=== PATIENT | female | born 1940 | race Caucasian/White ===

== ENCOUNTER 2024-02-29 22:07 | Emergency (ER) | payer MEDICARE, BC ==
[2024-02-29 22:46] LABS: HEMATOCRIT 32.6 % (34.2-48.2); HEMOGLOBIN 10.8 g/dL (11.4-15.5); MEAN CORPUSCULAR HEMOGLOBIN 31.2 pg (23.9-33.9); MEAN CORPUSCULAR VOLUME 94.4 fL (76.7-100.5); MEAN PLATELET VOLUME 7.3 fL (7.1-12.4); PLATELET COUNT,PLT 435 x10(3)uL (151-488); RED BLOOD CELL COUNT 3.45 x10(6)uL (3.60-5.20); RED CELL DISTRIBUTION WIDTH 14.4 % (12.3-16.5); WHITE BLOOD CELL COUNT,WBC 16.3 x10-3/uL (3.0-10.3)
[2024-02-29 22:51] LABS: BLOOD UREA NITROGEN,BUN 18 mg/dL (7-18); BUN/CREATININE RATIO 16.4 (9-20); CALCIUM 9.1 mg/dL (8.6-10.2); CARBON DIOXIDE,CO2 29 mmol/L (21-32); CHLORIDE,CL 103 mmol/L (100-110); CREATININE 1.1 mg/dL (0.55-1.02); ESTIMATED GFR 50 mL/min (>60); GLUCOSE RANDOM 86 mg/dL (80-116); POTASSIUM,K 4.2 mmol/L (3.5-5.3); SODIUM,NA 138 mmol/L (135-145)
[2024-02-29 23:02] LABS: LACTIC ACID 0.6 mmol/L (0.4-2.0)
[2024-02-29 23:06] LABS: LYMPHOCYTES PERCENT MAN 18 % (13-37); MONOCYTES PERCENT MAN 6 % (4-12); SEG NEUTROPHILS PERCENT MAN 76 % (46-82)
[2024-02-29 23:08] LABS: BILIRUBIN,URINE NEGATIVE (NEGATIVE); GLUCOSE,URINE NORMAL (NORMAL); KETONES,URINE NEGATIVE (NEGATIVE); LEUKOCYTE ESTERASE,URINE NEGATIVE (NEGATIVE); NITRITE,URINE NEGATIVE (NEGATIVE); OCCULT BLOOD,URINE NEGATIVE (NEGATIVE); PROTEIN,URINE NEGATIVE (NEGATIVE); UROBILINOGEN,URINE NORMAL (NEGATIVE)
[2024-02-29 23:12] LABS: APPEARANCE,URINE CLEAR (CLEAR); BACTERIA,URINE OCCASIONAL (NS); COLOR,URINE YELLOW (YELLOW); RBC,URINE 0-5 (0-5); SQUAMOUS EPITHELIAL CELLS,UR FEW (NS,R,O); WBC,URINE 0-5 (0-5)
[2024-02-29 23:39] LABS: CORONAVIRUS COVID-19 NAA NEGATIVE (NEGATIVE); INFLUENZA A NAA NEGATIVE (NEGATIVE); INFLUENZA B NAA NEGATIVE (NEGATIVE); RESPIRATORY SYNCYTIAL VIR NAA NEGATIVE (NEGATIVE)
== END 2024-03-01 00:08 | disposition home or self-care (01) ==
LOC: FB.ED 22:07
DX: R53.1 Weakness (principal); R50.9 Fever, unspecified; I48.0 Paroxysmal atrial fibrillation; F33.1 Major depressive disorder, recurrent, moderate; M19.90 Unspecified osteoarthritis, unspecified site; Z79.899 Other long term (current) drug therapy; Z79.82 Long term (current) use of aspirin; Z88.2 Allergy status to sulfonamides; Z88.5 Allergy status to narcotic agent; Z88.8 Allergy status to other drugs, medicaments and biological substances
CPT/HCPCS: 0241U; 36415; 71045; 80048; 81001; 83605; 85025; 86140; 99284; 99285

== ENCOUNTER 2024-03-14 19:17 | Inpatient (IN) | payer MEDICARE, BC ==
[2024-03-14] MEDS ORDERED: Sodium Chloride 0.9% 10 ML Syringe FLUSH PRN (19:21)
[2024-03-14 20:09] LABS: BASOPHILS ABSOLUTE AUTO 0.1 x10-3/uL (0.0-0.1); BASOPHILS PERCENT AUTO 0.5 % (0.2-1.5); EOSINOPHILS ABSOLUTE AUTO 0.1 x10-3/uL (0.0-0.8); EOSINOPHILS PERCENT AUTO 0.6 % (0.6-8.1); HEMATOCRIT 34.9 % (34.2-48.2); HEMOGLOBIN 11.1 g/dL (11.4-15.5); LYMPHOCYTES ABSOLUTE AUTO 2.1 x10-3/uL (1.0-4.4); LYMPHOCYTES PERCENT AUTO 10.9 % (18.4-52.1); MEAN CORPUSCULAR HGB CONC 31.8 g/dL (31.9-34.8); MEAN CORPUSCULAR VOLUME 94.2 fL (76.7-100.5); MEAN PLATELET VOLUME 8.3 fL (7.1-12.4); MONOCYTES ABSOLUTE AUTO 1.1 x10-3/uL (0.3-1.0); MONOCYTES PERCENT AUTO 5.9 % (4.4-15.7); NEUTROPHILS ABSOLUTE AUTO 15.8 x10-3/uL (1.5-6.3); NEUTROPHILS PERCENT AUTO 82.1 % (30.8-76.2); PLATELET COUNT,PLT 409 x10(3)uL (151-488); RED BLOOD CELL COUNT 3.71 x10(6)uL (3.60-5.20); RED CELL DISTRIBUTION WIDTH 14.7 % (12.3-16.5); WHITE BLOOD CELL COUNT,WBC 19.2 x10-3/uL (3.0-10.3)
[2024-03-14 20:11] LABS: BLOOD UREA NITROGEN,BUN 19 mg/dL (7-18); BUN/CREATININE RATIO 15.8 (9-20); CARBON DIOXIDE,CO2 25 mmol/L (21-32); CHLORIDE,CL 103 mmol/L (100-110); CREATININE 1.2 mg/dL (0.55-1.02); EST CRCL DRUG DOSING (CG) 29.38 mL/min; ESTIMATED GFR 45 mL/min (>60); GLUCOSE RANDOM 95 mg/dL (80-116); POTASSIUM,K 4.3 mmol/L (3.5-5.3); SODIUM,NA 138 mmol/L (135-145)
[2024-03-14 20:17] LABS: A/G RATIO 0.8; ALANINE AMINOTRANSFERASE,ALT 20 U/L (12-36); ALBUMIN 3.2 g/dL (3.2-4.6); ALKALINE PHOSPHATASE 115 IU/L (56-112); ASPARTATE AMNIOTRANSFERASE,AST 22 IU/L (5-25); BILIRUBIN TOTAL 0.3 mg/dL (0.1-1.3); PROTEIN TOTAL,TP 7.4 g/dL (6.0-8.0); TROPONIN I 8.4 pg/mL (4.0-60.3)
[2024-03-14 20:21] LABS: LACTIC ACID 1.1 mmol/L (0.4-2.0)
[2024-03-14 20:29] LABS: C-REACTIVE PROTEIN 3.14 mg/dL (<0.50)
[2024-03-14 20:44] LABS: BILIRUBIN,URINE NEGATIVE (NEGATIVE); GLUCOSE,URINE NORMAL (NORMAL); KETONES,URINE NEGATIVE (NEGATIVE); LEUKOCYTE ESTERASE,URINE NEGATIVE (NEGATIVE); NITRITE,URINE NEGATIVE (NEGATIVE); OCCULT BLOOD,URINE NEGATIVE (NEGATIVE); PROTEIN,URINE NEGATIVE (NEGATIVE); UROBILINOGEN,URINE NORMAL (NEGATIVE)
[2024-03-14 20:50] LABS: APPEARANCE,URINE CLEAR (CLEAR); BACTERIA,URINE RARE (NS); COLOR,URINE YELLOW (YELLOW); RBC,URINE 0-5 (0-5); SQUAMOUS EPITHELIAL CELLS,UR OCCASIONAL (NS,R,O); WBC,URINE 0-5 (0-5)
[2024-03-14] MEDS: Piperacillin/Tazobactam 4.5 GM in Sodium Chloride 0.9% 100 ML IV ONE (21:43)
[2024-03-14] MEDS: Sodium Chloride 0.9% 1,000 ML IV SCH (21:44)
[2024-03-15 06:34] LABS: HEMATOCRIT 32.8 % (34.2-48.2); HEMOGLOBIN 10.6 g/dL (11.4-15.5); MEAN CORPUSCULAR HEMOGLOBIN 30.7 pg (23.9-33.9); MEAN CORPUSCULAR HGB CONC 32.2 g/dL (31.9-34.8); MEAN CORPUSCULAR VOLUME 95.2 fL (76.7-100.5); PLATELET COUNT,PLT 408 x10(3)uL (151-488); RED BLOOD CELL COUNT 3.45 x10(6)uL (3.60-5.20); RED CELL DISTRIBUTION WIDTH 14.5 % (12.3-16.5); WHITE BLOOD CELL COUNT,WBC 17.2 x10-3/uL (3.0-10.3)
[2024-03-15 06:45] LABS: BLOOD UREA NITROGEN,BUN 15 mg/dL (7-18); BUN/CREATININE RATIO 13.6 (9-20); CALCIUM 8.5 mg/dL (8.6-10.2); CARBON DIOXIDE,CO2 27 mmol/L (21-32); CHLORIDE,CL 105 mmol/L (100-110); CREATININE 1.1 mg/dL (0.55-1.02); EST CRCL DRUG DOSING (CG) 36.28 mL/min; ESTIMATED GFR 50 mL/min (>60); GLUCOSE RANDOM 82 mg/dL (80-116); POTASSIUM,K 3.5 mmol/L (3.5-5.3); SODIUM,NA 140 mmol/L (135-145)
[2024-03-15 06:58] LABS: EOSINOPHILS PERCENT MAN 1 % (0-5); LYMPHOCYTES PERCENT MAN 21 % (13-37); MONOCYTES PERCENT MAN 1 % (4-12); SEG NEUTROPHILS PERCENT MAN 77 % (46-82)
[2024-03-15] MEDS: Loperamide 2 MG Cap PO PRN (10:20)
[2024-03-15] MEDS ORDERED: Loratadine 10 MG Tab PO PRN (10:33)
[2024-03-15] MEDS ORDERED: Calcium Carbonate 500 MG Tab.Chew PO PRN (10:33)
[2024-03-15] MEDS ORDERED: Simethicone 80 MG Tab.Chew PO PRN (10:33)
[2024-03-15] MEDS: buPROPion 150 MG Tab.ER PO SCH (11:42)
[2024-03-15] MEDS: Sertraline 50 MG Tab PO SCH (11:42)
[2024-03-15] MEDS: Apixaban 5 MG Tab PO SCH (11:42)
[2024-03-15] MEDS: atorvaSTATin 20 MG Tab PO SCH (20:29)
[2024-03-15] MEDS: Memantine 10 MG Tab PO SCH (20:29)
[2024-03-15] MEDS: Pregabalin 25 MG Cap PO SCH (20:29)
[2024-03-15] MEDS: Donepezil 10 MG Tab PO SCH (20:29)
[2024-03-15] MEDS: Acetaminophen 500 MG Tab PO SCH (20:30)
[2024-03-15] MEDS: Flecainide 100 MG Tab PO SCH (20:30)
[2024-03-16 06:37] LABS: BASOPHILS ABSOLUTE AUTO 0.1 x10-3/uL (0.0-0.1); BASOPHILS PERCENT AUTO 0.5 % (0.2-1.5); EOSINOPHILS ABSOLUTE AUTO 0.6 x10-3/uL (0.0-0.8); EOSINOPHILS PERCENT AUTO 5.9 % (0.6-8.1); HEMOGLOBIN 9.8 g/dL (11.4-15.5); LYMPHOCYTES ABSOLUTE AUTO 2.6 x10-3/uL (1.0-4.4); LYMPHOCYTES PERCENT AUTO 24.3 % (18.4-52.1); MEAN CORPUSCULAR HEMOGLOBIN 31.1 pg (23.9-33.9); MEAN CORPUSCULAR HGB CONC 32.7 g/dL (31.9-34.8); MONOCYTES ABSOLUTE AUTO 0.9 x10-3/uL (0.3-1.0); MONOCYTES PERCENT AUTO 8.4 % (4.4-15.7); NEUTROPHILS ABSOLUTE AUTO 6.4 x10-3/uL (1.5-6.3); NEUTROPHILS PERCENT AUTO 60.9 % (30.8-76.2); PLATELET COUNT,PLT 357 x10(3)uL (151-488); RED BLOOD CELL COUNT 3.16 x10(6)uL (3.60-5.20); RED CELL DISTRIBUTION WIDTH 14.1 % (12.3-16.5); WHITE BLOOD CELL COUNT,WBC 10.6 x10-3/uL (3.0-10.3)
[2024-03-16 06:47] LABS: A/G RATIO 0.7; ALANINE AMINOTRANSFERASE,ALT 12 U/L (12-36); ALBUMIN 2.3 g/dL (3.2-4.6); ALKALINE PHOSPHATASE 75 IU/L (56-112); ASPARTATE AMNIOTRANSFERASE,AST 13 IU/L (5-25); BILIRUBIN TOTAL 0.3 mg/dL (0.1-1.3); BLOOD UREA NITROGEN,BUN 13 mg/dL (7-18); CALCIUM 8.3 mg/dL (8.6-10.2); CARBON DIOXIDE,CO2 27 mmol/L (21-32); CHLORIDE,CL 112 mmol/L (100-110); ESTIMATED GFR 56 mL/min (>60); GLUCOSE RANDOM 83 mg/dL (80-116); POTASSIUM,K 3.6 mmol/L (3.5-5.3); PROTEIN TOTAL,TP 5.8 g/dL (6.0-8.0); SODIUM,NA 145 mmol/L (135-145)
[2024-03-16] MEDS: Ferrous Sulfate 325 MG Tab PO SCH (09:25)
[2024-03-16] MEDS: Folic Acid 1 MG Tab PO SCH (09:25)
[2024-03-17 06:49] LABS: BASOPHILS ABSOLUTE AUTO 0.1 x10-3/uL (0.0-0.1); BASOPHILS PERCENT AUTO 0.8 % (0.2-1.5); EOSINOPHILS ABSOLUTE AUTO 0.5 x10-3/uL (0.0-0.8); EOSINOPHILS PERCENT AUTO 7.2 % (0.6-8.1); HEMATOCRIT 30.1 % (34.2-48.2); HEMOGLOBIN 9.9 g/dL (11.4-15.5); LYMPHOCYTES ABSOLUTE AUTO 2.6 x10-3/uL (1.0-4.4); LYMPHOCYTES PERCENT AUTO 37.3 % (18.4-52.1); MEAN CORPUSCULAR HEMOGLOBIN 31.1 pg (23.9-33.9); MEAN CORPUSCULAR HGB CONC 32.8 g/dL (31.9-34.8); MEAN CORPUSCULAR VOLUME 94.8 fL (76.7-100.5); MEAN PLATELET VOLUME 6.9 fL (7.1-12.4); MONOCYTES ABSOLUTE AUTO 0.7 x10-3/uL (0.3-1.0); MONOCYTES PERCENT AUTO 9.8 % (4.4-15.7); NEUTROPHILS ABSOLUTE AUTO 3.1 x10-3/uL (1.5-6.3); NEUTROPHILS PERCENT AUTO 44.9 % (30.8-76.2); PLATELET COUNT,PLT 390 x10(3)uL (151-488); RED BLOOD CELL COUNT 3.18 x10(6)uL (3.60-5.20); RED CELL DISTRIBUTION WIDTH 14.1 % (12.3-16.5)
[2024-03-17 06:57] LABS: BLOOD UREA NITROGEN,BUN 14 mg/dL (7-18); CALCIUM 8.8 mg/dL (8.6-10.2); CARBON DIOXIDE,CO2 26 mmol/L (21-32); CHLORIDE,CL 110 mmol/L (100-110); ESTIMATED GFR 56 mL/min (>60); GLUCOSE RANDOM 85 mg/dL (80-116); POTASSIUM,K 4.4 mmol/L (3.5-5.3); SODIUM,NA 143 mmol/L (135-145)
[2024-03-17] MEDS: buPROPion 150 MG Tab.ER PO SCH (09:15)
== END 2024-03-17 11:35 | disposition home or self-care (01) | DRG 392 ==
LOC: FB.ED 19:17 → FB.MS 21:07 → OBSVTOIN 03-15 11:28
PROVIDERS: ADMIT Family Medicine; ATTEND Family Medicine
DX: R53.1 Weakness (principal); R50.9 Fever, unspecified; G30.1 Alzheimer's disease with late onset; F02.B0 Dementia in other diseases classified elsewhere, moderate, without behavioral disturbance, psychotic disturbance, mood disturbance, and anxiety; A08.4 Viral intestinal infection, unspecified; F02.B4 Dementia in other diseases classified elsewhere, moderate, with anxiety; F02.B3 Dementia in other diseases classified elsewhere, moderate, with mood disturbance; F33.1 Major depressive disorder, recurrent, moderate; Z66 Do not resuscitate; K21.9 Gastro-esophageal reflux disease without esophagitis; M19.90 Unspecified osteoarthritis, unspecified site; G30.9 Alzheimer's disease, unspecified; M54.9 Dorsalgia, unspecified; G89.29 Other chronic pain; I48.0 Paroxysmal atrial fibrillation; E86.0 Dehydration; D63.1 Anemia in chronic kidney disease; N18.31 Chronic kidney disease, stage 3a; Z88.5 Allergy status to narcotic agent; Z88.2 Allergy status to sulfonamides; Z88.8 Allergy status to other drugs, medicaments and biological substances; Z79.01 Long term (current) use of anticoagulants; Z79.4 Long term (current) use of insulin; Z79.899 Other long term (current) drug therapy; Z85.038 Personal history of other malignant neoplasm of large intestine; Z87.440 Personal history of urinary (tract) infections
CPT/HCPCS: 36415 ×2; 71045; 80048; 80053; 81001; 83605; 83735; 83880; 84484; 85025 ×2; 86140; 87040 ×2; 93005; 99285; A9270; J2543; J3490; J7030 ×2; U0002; 96365; 97161-GP; 97165-GO; 99223; 99233; 99238; G0378

== ENCOUNTER 2024-04-08 11:59 | Emergency (ER) | payer MEDICARE, BC ==
[2024-04-08 12:35] LABS: BILIRUBIN,URINE NEGATIVE (NEGATIVE); GLUCOSE,URINE NORMAL (NORMAL); KETONES,URINE NEGATIVE (NEGATIVE); LEUKOCYTE ESTERASE,URINE NEGATIVE (NEGATIVE); NITRITE,URINE NEGATIVE (NEGATIVE); OCCULT BLOOD,URINE NEGATIVE (NEGATIVE); PROTEIN,URINE NEGATIVE (NEGATIVE); UROBILINOGEN,URINE NORMAL (NEGATIVE)
[2024-04-08 12:36] LABS: APPEARANCE,URINE CLOUDY (CLEAR); COLOR,URINE YELLOW (YELLOW); RBC,URINE 0-5 (0-5); SQUAMOUS EPITHELIAL CELLS,UR FEW (NS,R,O)
[2024-04-08 12:37] LABS: BACTERIA,URINE MANY (NS)
[2024-04-08] MEDS: Sodium Chloride 0.9% 500 ML IV ONE (12:49)
[2024-04-08 12:54] LABS: BASOPHILS ABSOLUTE AUTO 0.1 x10-3/uL (0.0-0.1); BASOPHILS PERCENT AUTO 1.1 % (0.2-1.5); EOSINOPHILS ABSOLUTE AUTO 0.1 x10-3/uL (0.0-0.8); EOSINOPHILS PERCENT AUTO 1.3 % (0.6-8.1); HEMATOCRIT 34.2 % (34.2-48.2); HEMOGLOBIN 11.3 g/dL (11.4-15.5); LYMPHOCYTES ABSOLUTE AUTO 1.5 x10-3/uL (1.0-4.4); LYMPHOCYTES PERCENT AUTO 20.8 % (18.4-52.1); MEAN CORPUSCULAR HEMOGLOBIN 30.8 pg (23.9-33.9); MEAN CORPUSCULAR VOLUME 93.1 fL (76.7-100.5); MEAN PLATELET VOLUME 7.5 fL (7.1-12.4); MONOCYTES ABSOLUTE AUTO 0.7 x10-3/uL (0.3-1.0); MONOCYTES PERCENT AUTO 8.9 % (4.4-15.7); NEUTROPHILS PERCENT AUTO 67.9 % (30.8-76.2); PLATELET COUNT,PLT 408 x10(3)uL (151-488); RED BLOOD CELL COUNT 3.67 x10(6)uL (3.60-5.20); RED CELL DISTRIBUTION WIDTH 14.1 % (12.3-16.5); WHITE BLOOD CELL COUNT,WBC 7.3 x10-3/uL (3.0-10.3)
[2024-04-08 12:59] LABS: BLOOD UREA NITROGEN,BUN 20 mg/dL (7-18); BUN/CREATININE RATIO 18.2 (9-20); CALCIUM 9.3 mg/dL (8.6-10.2); CARBON DIOXIDE,CO2 29 mmol/L (21-32); CHLORIDE,CL 104 mmol/L (100-110); CREATININE 1.1 mg/dL (0.55-1.02); EST CRCL DRUG DOSING (CG) 37.68 mL/min; ESTIMATED GFR 50 mL/min (>60); GLUCOSE RANDOM 90 mg/dL (80-116); POTASSIUM,K 4.2 mmol/L (3.5-5.3); SODIUM,NA 141 mmol/L (135-145)
[2024-04-08 13:05] LABS: A/G RATIO 0.7; ALANINE AMINOTRANSFERASE,ALT 22 U/L (12-36); ALBUMIN 3.1 g/dL (3.2-4.6); ALKALINE PHOSPHATASE 123 IU/L (56-112); ASPARTATE AMNIOTRANSFERASE,AST 24 IU/L (5-25); BILIRUBIN TOTAL 0.3 mg/dL (0.1-1.3); PROTEIN TOTAL,TP 7.4 g/dL (6.0-8.0)
[2024-04-08] MEDS: Gentamicin 160 MG in Sodium Chloride 0.9% 100 ML IV STA (13:46)
[2024-04-08] MEDS: Vancomycin 125 MG Cap PO STA (13:47)
== END 2024-04-08 14:55 ==
LOC: FB.ED 11:59
DX: S00.83XA Contusion of other part of head, initial encounter (principal); N39.0 Urinary tract infection, site not specified; E86.0 Dehydration; R79.82 Elevated C-reactive protein (CRP); Z79.01 Long term (current) use of anticoagulants; I48.91 Unspecified atrial fibrillation; K21.9 Gastro-esophageal reflux disease without esophagitis; Z79.899 Other long term (current) drug therapy; Z88.1 Allergy status to other antibiotic agents; Z88.6 Allergy status to analgesic agent; Z88.5 Allergy status to narcotic agent; Z88.8 Allergy status to other drugs, medicaments and biological substances; W01.198A Fall on same level from slipping, tripping and stumbling with subsequent striking against other object, initial encounter
CPT/HCPCS: 36415; 70450; 80053; 81001; 85025; 86140; 87086; 87088; 96361; 96365; 99284; A9270; J1580; J3490; J7040

== ENCOUNTER 2024-08-15 17:51 | Inpatient (IN) | payer MEDICARE, BC ==
[2024-08-15 18:34] LABS: HEMATOCRIT 37.1 % (34.2-48.2); HEMOGLOBIN 12.6 g/dL (11.4-15.5); MEAN CORPUSCULAR HEMOGLOBIN 31.5 pg (23.9-33.9); MEAN CORPUSCULAR VOLUME 92.6 fL (76.7-100.5); MEAN PLATELET VOLUME 7.4 fL (7.1-12.4); PLATELET COUNT,PLT 318 x10(3)uL (151-488); RED BLOOD CELL COUNT 4.01 x10(6)uL (3.60-5.20); RED CELL DISTRIBUTION WIDTH 14.8 % (12.3-16.5); WHITE BLOOD CELL COUNT,WBC 10.6 x10-3/uL (3.0-10.3)
[2024-08-15 18:37] LABS: BLOOD UREA NITROGEN,BUN 27 mg/dL (7-18); BUN/CREATININE RATIO 22.5 (9-20); CALCIUM 9.2 mg/dL (8.6-10.2); CARBON DIOXIDE,CO2 26 mmol/L (21-32); CHLORIDE,CL 105 mmol/L (100-110); CREATININE 1.2 mg/dL (0.55-1.02); ESTIMATED GFR 45 mL/min (>60); GLUCOSE RANDOM 109 mg/dL (80-116); POTASSIUM,K 4.4 mmol/L (3.5-5.3); SODIUM,NA 141 mmol/L (135-145)
[2024-08-15] MEDS: Sodium Chloride 0.9% 1,000 ML IV SCH (18:49)
[2024-08-15 19:04] LABS: BAND PERCENT MAN 1 % (0-6); LYMPHOCYTES PERCENT MAN 6 % (13-37); MONOCYTES PERCENT MAN 2 % (4-12); SEG NEUTROPHILS PERCENT MAN 91 % (46-82)
[2024-08-15 19:36] LABS: APPEARANCE,URINE CLEAR (CLEAR); BILIRUBIN,URINE NEGATIVE (NEGATIVE); COLOR,URINE YELLOW (YELLOW); GLUCOSE,URINE NORMAL (NORMAL); KETONES,URINE NEGATIVE (NEGATIVE); LEUKOCYTE ESTERASE,URINE SMALL (NEGATIVE); NITRITE,URINE POSITIVE (NEGATIVE); OCCULT BLOOD,URINE NEGATIVE (NEGATIVE); PROTEIN,URINE NEGATIVE (NEGATIVE); RBC,URINE 0-5 (0-5); SQUAMOUS EPITHELIAL CELLS,UR OCCASIONAL (NS,R,O); UROBILINOGEN,URINE NORMAL (NEGATIVE)
[2024-08-15 19:37] LABS: BACTERIA,URINE MODERATE (NS)
[2024-08-15] MEDS: cefTRIAXone 2 GM Vial IVPUSH ONE (19:44)
[2024-08-15] MEDS ORDERED: Sennosides/Docusate Sodium 50-8.6 MG Tab PO PRN (20:08)
[2024-08-15] MEDS ORDERED: Ondansetron 4 MG/2 ML SDV IV PRN (20:08)
[2024-08-15] MEDS ORDERED: Acetaminophen 325 MG Tab PO PRN (20:08)
[2024-08-15] MEDS ORDERED: Loperamide 2 MG Cap PO PRN (20:14)
[2024-08-15] MEDS ORDERED: Simethicone 80 MG Tab.Chew PO PRN (20:14)
[2024-08-15] MEDS ORDERED: Loratadine 10 MG Tab PO PRN (20:14)
[2024-08-15] MEDS ORDERED: Calcium Carbonate 500 MG Tab.Chew PO PRN (20:14)
[2024-08-16] MEDS: Apixaban 5 MG Tab PO SCH ×2 (00:04→03:00)
[2024-08-16] MEDS: Flecainide 100 MG Tab PO SCH (00:05)
[2024-08-16] MEDS: atorvaSTATin 20 MG Tab PO SCH (00:05)
[2024-08-16] MEDS: Memantine 10 MG Tab PO SCH (00:05)
[2024-08-16] MEDS: Donepezil 10 MG Tab PO SCH (00:05)
[2024-08-16] MEDS: Pregabalin 25 MG Cap PO SCH (00:05)
[2024-08-16] MEDS: Sodium Chloride 0.9% 1,000 ML IV SCH (00:43)
[2024-08-16 06:52] LABS: BASOPHILS PERCENT AUTO 0.5 % (0.2-1.5); EOSINOPHILS ABSOLUTE AUTO 0.1 x10-3/uL (0.0-0.8); HEMOGLOBIN 10.9 g/dL (11.4-15.5); LYMPHOCYTES ABSOLUTE AUTO 2.1 x10-3/uL (1.0-4.4); LYMPHOCYTES PERCENT AUTO 21.2 % (18.4-52.1); MEAN CORPUSCULAR HEMOGLOBIN 31.6 pg (23.9-33.9); MEAN CORPUSCULAR VOLUME 92.8 fL (76.7-100.5); MEAN PLATELET VOLUME 7.8 fL (7.1-12.4); MONOCYTES ABSOLUTE AUTO 1.1 x10-3/uL (0.3-1.0); MONOCYTES PERCENT AUTO 10.8 % (4.4-15.7); NEUTROPHILS ABSOLUTE AUTO 6.6 x10-3/uL (1.5-6.3); NEUTROPHILS PERCENT AUTO 66.5 % (30.8-76.2); PLATELET COUNT,PLT 285 x10(3)uL (151-488); RED BLOOD CELL COUNT 3.45 x10(6)uL (3.60-5.20); RED CELL DISTRIBUTION WIDTH 14.7 % (12.3-16.5); WHITE BLOOD CELL COUNT,WBC 9.9 x10-3/uL (3.0-10.3)
[2024-08-16 07:11] LABS: A/G RATIO 0.9; ALANINE AMINOTRANSFERASE,ALT 24 U/L (12-36); ALBUMIN 2.9 g/dL (3.2-4.6); ALKALINE PHOSPHATASE 95 IU/L (56-112); ASPARTATE AMNIOTRANSFERASE,AST 20 IU/L (5-25); BILIRUBIN TOTAL 0.4 mg/dL (0.1-1.3); BLOOD UREA NITROGEN,BUN 21 mg/dL (7-18); BUN/CREATININE RATIO 19.1 (9-20); CALCIUM 8.5 mg/dL (8.6-10.2); CARBON DIOXIDE,CO2 27 mmol/L (21-32); CHLORIDE,CL 109 mmol/L (100-110); CREATININE 1.1 mg/dL (0.55-1.02); EST CRCL DRUG DOSING (CG) 36.28 mL/min; ESTIMATED GFR 50 mL/min (>60); GLUCOSE RANDOM 86 mg/dL (80-116); PROTEIN TOTAL,TP 6.1 g/dL (6.0-8.0); SODIUM,NA 143 mmol/L (135-145)
[2024-08-16] MEDS ORDERED: INULIN PO SCH (09:00)
[2024-08-16] MEDS ORDERED: Gentamicin 40 MG/ML 2 ML Vial IM SCH (09:00)
[2024-08-16] MEDS ORDERED: CHROMIUM PICOLINATE PO SCH (09:00)
[2024-08-16] MEDS ORDERED: [UNRECOGNIZED DRUG - OTHER] PO SCH (09:00)
[2024-08-16] MEDS: Folic Acid 1 MG Tab PO SCH (09:02)
[2024-08-16] MEDS: Ferrous Sulfate 325 MG Tab PO SCH (09:02)
[2024-08-16] MEDS: Sertraline 50 MG Tab PO SCH (09:13)
[2024-08-16] MEDS: buPROPion 150 MG Tab.ER PO SCH (09:13)
[2024-08-16] MEDS: Acetaminophen 500 MG Tab PO SCH (11:07)
[2024-08-16] MEDS: cefTRIAXone 1 GM Vial IVPUSH SCH (21:15)
[2024-08-17 06:23] LABS: BASOPHILS ABSOLUTE AUTO 0.1 x10-3/uL (0.0-0.1); BASOPHILS PERCENT AUTO 0.8 % (0.2-1.5); EOSINOPHILS ABSOLUTE AUTO 0.3 x10-3/uL (0.0-0.8); EOSINOPHILS PERCENT AUTO 2.8 % (0.6-8.1); HEMATOCRIT 32.6 % (34.2-48.2); HEMOGLOBIN 11.2 g/dL (11.4-15.5); LYMPHOCYTES ABSOLUTE AUTO 2.1 x10-3/uL (1.0-4.4); LYMPHOCYTES PERCENT AUTO 22.9 % (18.4-52.1); MEAN CORPUSCULAR HEMOGLOBIN 32.1 pg (23.9-33.9); MEAN CORPUSCULAR HGB CONC 34.3 g/dL (31.9-34.8); MEAN CORPUSCULAR VOLUME 93.7 fL (76.7-100.5); MEAN PLATELET VOLUME 7.4 fL (7.1-12.4); MONOCYTES ABSOLUTE AUTO 1.2 x10-3/uL (0.3-1.0); MONOCYTES PERCENT AUTO 12.6 % (4.4-15.7); NEUTROPHILS ABSOLUTE AUTO 5.6 x10-3/uL (1.5-6.3); NEUTROPHILS PERCENT AUTO 60.9 % (30.8-76.2); PLATELET COUNT,PLT 274 x10(3)uL (151-488); RED BLOOD CELL COUNT 3.48 x10(6)uL (3.60-5.20); RED CELL DISTRIBUTION WIDTH 14.4 % (12.3-16.5); WHITE BLOOD CELL COUNT,WBC 9.1 x10-3/uL (3.0-10.3)
[2024-08-17 06:31] LABS: BLOOD UREA NITROGEN,BUN 17 mg/dL (7-18); BUN/CREATININE RATIO 15.5 (9-20); CALCIUM 8.8 mg/dL (8.6-10.2); CARBON DIOXIDE,CO2 25 mmol/L (21-32); CHLORIDE,CL 111 mmol/L (100-110); CREATININE 1.1 mg/dL (0.55-1.02); EST CRCL DRUG DOSING (CG) 36.28 mL/min; ESTIMATED GFR 50 mL/min (>60); GLUCOSE RANDOM 87 mg/dL (80-116); POTASSIUM,K 4.3 mmol/L (3.5-5.3); SODIUM,NA 144 mmol/L (135-145)
[2024-08-18 07:08] LABS: BASOPHILS ABSOLUTE AUTO 0.1 x10-3/uL (0.0-0.1); BASOPHILS PERCENT AUTO 0.8 % (0.2-1.5); EOSINOPHILS ABSOLUTE AUTO 0.3 x10-3/uL (0.0-0.8); EOSINOPHILS PERCENT AUTO 3.8 % (0.6-8.1); HEMATOCRIT 32.6 % (34.2-48.2); HEMOGLOBIN 11.1 g/dL (11.4-15.5); LYMPHOCYTES PERCENT AUTO 21.5 % (18.4-52.1); MEAN CORPUSCULAR HEMOGLOBIN 31.8 pg (23.9-33.9); MEAN CORPUSCULAR HGB CONC 34.2 g/dL (31.9-34.8); MEAN CORPUSCULAR VOLUME 92.9 fL (76.7-100.5); MEAN PLATELET VOLUME 7.8 fL (7.1-12.4); MONOCYTES ABSOLUTE AUTO 1.1 x10-3/uL (0.3-1.0); MONOCYTES PERCENT AUTO 12.4 % (4.4-15.7); NEUTROPHILS ABSOLUTE AUTO 5.6 x10-3/uL (1.5-6.3); NEUTROPHILS PERCENT AUTO 61.5 % (30.8-76.2); PLATELET COUNT,PLT 294 x10(3)uL (151-488); RED BLOOD CELL COUNT 3.51 x10(6)uL (3.60-5.20); RED CELL DISTRIBUTION WIDTH 14.3 % (12.3-16.5); WHITE BLOOD CELL COUNT,WBC 9.2 x10-3/uL (3.0-10.3)
[2024-08-18 07:11] LABS: BLOOD UREA NITROGEN,BUN 13 mg/dL (7-18); CALCIUM 8.9 mg/dL (8.6-10.2); CARBON DIOXIDE,CO2 25 mmol/L (21-32); CHLORIDE,CL 110 mmol/L (100-110); ESTIMATED GFR 56 mL/min (>60); GLUCOSE RANDOM 83 mg/dL (80-116); POTASSIUM,K 4.1 mmol/L (3.5-5.3); SODIUM,NA 144 mmol/L (135-145)
[2024-08-19 07:06] LABS: BLOOD UREA NITROGEN,BUN 16 mg/dL (7-18); CALCIUM 9.1 mg/dL (8.6-10.2); CARBON DIOXIDE,CO2 28 mmol/L (21-32); CHLORIDE,CL 110 mmol/L (100-110); ESTIMATED GFR 56 mL/min (>60); GLUCOSE RANDOM 82 mg/dL (80-116); POTASSIUM,K 4.4 mmol/L (3.5-5.3); SODIUM,NA 145 mmol/L (135-145)
[2024-08-19 07:07] LABS: BASOPHILS ABSOLUTE AUTO 0.1 x10-3/uL (0.0-0.1); BASOPHILS PERCENT AUTO 0.7 % (0.2-1.5); EOSINOPHILS ABSOLUTE AUTO 0.4 x10-3/uL (0.0-0.8); EOSINOPHILS PERCENT AUTO 5.6 % (0.6-8.1); HEMATOCRIT 32.9 % (34.2-48.2); HEMOGLOBIN 11.2 g/dL (11.4-15.5); LYMPHOCYTES ABSOLUTE AUTO 2.2 x10-3/uL (1.0-4.4); LYMPHOCYTES PERCENT AUTO 28.9 % (18.4-52.1); MEAN CORPUSCULAR HEMOGLOBIN 31.7 pg (23.9-33.9); MEAN CORPUSCULAR VOLUME 93.2 fL (76.7-100.5); MEAN PLATELET VOLUME 7.7 fL (7.1-12.4); MONOCYTES ABSOLUTE AUTO 0.9 x10-3/uL (0.3-1.0); MONOCYTES PERCENT AUTO 11.6 % (4.4-15.7); NEUTROPHILS ABSOLUTE AUTO 4.1 x10-3/uL (1.5-6.3); NEUTROPHILS PERCENT AUTO 53.2 % (30.8-76.2); PLATELET COUNT,PLT 313 x10(3)uL (151-488); RED BLOOD CELL COUNT 3.53 x10(6)uL (3.60-5.20); RED CELL DISTRIBUTION WIDTH 14.1 % (12.3-16.5); WHITE BLOOD CELL COUNT,WBC 7.7 x10-3/uL (3.0-10.3)
== END 2024-08-19 13:15 | disposition home or self-care (01) | DRG 690 ==
LOC: FB.ED 17:51 → FB.MS 20:08
PROVIDERS: ADMIT Emergency Medicine; ATTEND Internal Medicine
PROC: 0T9B70Z Drainage of Bladder with Drainage Device, Via Natural or Artificial Opening (ICD-10-PCS; principal; 2024-08-15)
DX: N39.0 Urinary tract infection, site not specified (principal); F33.1 Major depressive disorder, recurrent, moderate; F02.B3 Dementia in other diseases classified elsewhere, moderate, with mood disturbance; F02.B4 Dementia in other diseases classified elsewhere, moderate, with anxiety; F02.80 Dementia in other diseases classified elsewhere, unspecified severity, without behavioral disturbance, psychotic disturbance, mood disturbance, and anxiety; E78.5 Hyperlipidemia, unspecified; Z66 Do not resuscitate; K21.9 Gastro-esophageal reflux disease without esophagitis; M19.90 Unspecified osteoarthritis, unspecified site; G30.9 Alzheimer's disease, unspecified; I12.9 Hypertensive chronic kidney disease with stage 1 through stage 4 chronic kidney disease, or unspecified chronic kidney disease; N18.9 Chronic kidney disease, unspecified; I48.0 Paroxysmal atrial fibrillation; E11.22 Type 2 diabetes mellitus with diabetic chronic kidney disease; B96.20 Unspecified Escherichia coli [E. coli] as the cause of diseases classified elsewhere; Z88.5 Allergy status to narcotic agent; Z88.2 Allergy status to sulfonamides; Z88.1 Allergy status to other antibiotic agents; Z88.8 Allergy status to other drugs, medicaments and biological substances; Z79.899 Other long term (current) drug therapy; Z79.01 Long term (current) use of anticoagulants
CPT/HCPCS: 36415; 51702; 80048; 80053; 81001; 85025; 87086; 87088; 87147; 87186; 94150; 96361; 96374; 97161-GP; 97165-GO; 99223; 99232; 99233; 99238; 99285; 99285-25; A9270-GY; J0696; J7030